=== PATIENT | male | born 1975 | race Caucasian/White ===

== ENCOUNTER 2023-12-21 16:21 | Inpatient (IN) | payer OTHER ==
[2023-12-21 16:55] VITALS: BMI 25.0
[2023-12-21] MEDS ORDERED: ONDANSETRON 4 MG/2 ML VIAL ONE (19:24)
[2023-12-21] MEDS ORDERED: ACETAMINOPHEN INJECTION 100 ML IVPB ONE (19:24)
[2023-12-21] MEDS: ACETAMINOPHEN 1000 MG/100 ML BAG IVPB ONE (19:29)
[2023-12-21] MEDS: ONDANSETRON 4 MG/2 ML VIAL IVPB ONE (19:29)
[2023-12-21 19:37] LABS: BASO % 0.7 % (0-2.0); EOS % 2.1 % (0-4.5); HEMATOCRIT 32.8 % (35.4-49); HEMOGLOBIN 11.3 GM/dL (11.7-16.9); LYMPH % 9.8 % (8-40); MCH 33.4 pg (25.7-33.7); MCHC 34.6 g/dl (32.0-35.9); MEAN CELL VOLUME 96.5 fl (80-96); MONO % 7.3 % (3.8-10.2); NEUT % 80.1 % (42.8-82.8); PLATELET COUNT 644 10^3/uL (134-434); RBC 3.39 M/mm3 (4.00-5.60); WHITE BLOOD COUNT 12.1 K/mm3 (4.0-10.0)
[2023-12-21 19:38] LABS: INR 1.21 (0.83-1.09); PROTHROMBIN TIME (PATIENT) 13.6 SEC (9.7-13.0)
[2023-12-21 19:40] LABS: ACTIVATED PTT 32.5 SECONDS (25.2-36.5)
[2023-12-21 19:41] LABS: CHLORIDE 93 mmol/L (98-107); POTASSIUM 4.9 mmol/L (3.5-5.1); SODIUM 131 mmol/L (136-145)
[2023-12-21 19:43] LABS: ALBUMIN 2.2 g/dl (3.4-5.0); ANION GAP 10 mmol/L (4-13); BLOOD UREA NITROGEN 20.3 mg/dL (7-18); CALCIUM 9.3 mg/dL (8.5-10.1); CO2 27 mmol/L (21-32)
[2023-12-21 19:46] LABS: SGOT/AST 33 U/L (15-37); SGPT/ALT 45 U/L (13-61)
[2023-12-21 19:47] LABS: CREATININE 0.9 mg/dL (0.55-1.3)
[2023-12-21 19:48] LABS: BILIRUBIN,TOTAL 0.3 mg/dL (0.2-1); TOT PROT 7.8 g/dl (6.4-8.2)
[2023-12-21 19:49] LABS: ALK PHOS 435 U/L (45-117)
[2023-12-21 19:58] LABS: GLUCOSE,RANDOM 430 mg/dL (74-106)
[2023-12-21] MEDS ORDERED: PIPERACILLIN/TAZOB 3.375 GM 3.375 GM/50 ML BAG IVPB ONE (20:02)
[2023-12-21] MEDS: PIPERACILLIN/TAZOB 3.375 GM 3.375 GM in DEXTROSE 5%-WATER - 50 ML IVPB ONE (20:08)
[2023-12-21] MEDS: morphine SULFATE 4 MG/ML VIAL IVPUSH ONE (20:09)
[2023-12-21 20:20] LABS: VENOUS BASE EXCESS 1.7 mmol/L (-2-2); VENOUS O2 SATURATION 92.2 % (70-80); VENOUS PCO2 37.6 mmHg (38-52); VENOUS PH 7.451 (7.310-7.410)
[2023-12-21] MEDS ORDERED: VANCOMYCIN 1 GRAM (PRE-DOCKED) 1,000 MG/250 ML BAG IVPB ONE (20:48)
[2023-12-21] MEDS: VANCOMYCIN 1 GM PREMIX - 1 GM/200 ML BAG IVPB ONE (21:15)
[2023-12-21] MEDS: LACTATED RINGERS SOLUTION 1000 ML INFUS.BAG IV ONE (21:34)
[2023-12-21 21:38] LABS: ERYTHROCYTE SEDIMENTATION RATE 103 mm/hr (0-10)
[2023-12-22] MEDS ORDERED: ONDANSETRON 4 MG/2 ML VIAL IVPUSH PRN (01:25)
[2023-12-22] MEDS ORDERED: VANCOMYCIN/WATER 1250 MG 1,250 MG/250 ML BAG IVPB SCH (01:30)
[2023-12-22] MEDS: INSULIN (LEVEMIR) 100 UNITS/ML UNITS SQ SCH ×2 (01:33→13:59)
[2023-12-22] MEDS: SODIUM CHLORIDE 1,000 ML IV SCH (01:33)
[2023-12-22] MEDS: INSULIN (NOVOLOG) ASPART 100 UNITS/ML 10ML VIAL SQ ONE ×3 (01:51→03:06)
[2023-12-22] MEDS: PIPERACILLIN/TAZOB 3.375 GM 3.375 GM in DEXTROSE 5%-WATER - 50 ML IVPB SCH ×2 (02:39→15:02)
[2023-12-22] MEDS: INSULIN ASPART SLIDING SCALE (NOVOLOG) 1 VIAL SQ SCH (06:03)
[2023-12-22 06:18] LABS: PH,URINE 5.5 (5.0-8.0); URINE APPEARANCE CLEAR; URINE BILIRUBIN NEGATIVE (NEGATIVE); URINE COLOR YELLOW; URINE GLUCOSE (UA) 3+ (NEGATIVE); URINE KETONE NEGATIVE (NEGATIVE); URINE LEUK ESTERASE NEGATIVE (NEGATIVE); URINE NITRITE NEGATIVE (NEGATIVE); URINE PROTEIN NEGATIVE (NEGATIVE)
[2023-12-22 09:19] LABS: HEMATOCRIT 31.4 % (35.4-49); HEMOGLOBIN 10.6 GM/dL (11.7-16.9); MCHC 33.9 g/dl (32.0-35.9); MEAN CELL VOLUME 97.5 fl (80-96); MEAN PLT VOLUME 6.7 fl (7.5-11.1); PLATELET COUNT 637 10^3/uL (134-434); RBC 3.22 M/mm3 (4.00-5.60); RDW 13.5 % (11.9-15.9); WHITE BLOOD COUNT 10.4 K/mm3 (4.0-10.0)
[2023-12-22 09:29] LABS: POTASSIUM 4.2 mmol/L (3.5-5.1)
[2023-12-22] MEDS: VANCOMYCIN/WATER 1250 MG 1,250 MG/250 ML BAG IVPB SCH ×2 (09:40→21:15)
[2023-12-22 09:46] LABS: BLOOD UREA NITROGEN 13.6 mg/dL (7-18); MAGNESIUM 2.2 mg/dL (1.8-2.4)
[2023-12-22 09:48] LABS: CREATININE 0.7 mg/dL (0.55-1.3); PHOSPHOROUS 3.3 mg/dL (2.5-4.9)
[2023-12-22 09:49] LABS: BILIRUBIN,TOTAL 0.3 mg/dL (0.2-1); TOT PROT 7.4 g/dl (6.4-8.2)
[2023-12-22 09:53] LABS: CALCIUM 8.7 mg/dL (8.5-10.1)
[2023-12-22] MEDS: ACETAMINOPHEN 325 MG TABLET (FP) PO PRN (16:53)
[2023-12-23] MEDS ORDERED: PROPOFOL 20 ML ONE (09:50)
[2023-12-23] MEDS ORDERED: FENTANYL CITRATE/PF 50 MCG/ML VIAL ONE ×7 (09:50→11:36)
[2023-12-23] MEDS ORDERED: SUCCINYLCHOLINE CHLORIDE 200 MG/10 ML SYRINGE ONE (09:50)
[2023-12-23] MEDS ORDERED: MIDAZOLAM HCL 2 MG/2 ML SINGLE DOSE VIAL ONE (09:50)
[2023-12-23] MEDS ORDERED: PROMETHAZINE HCL 25 MG/1 ML VIAL IVPB PRN ×2 (10:56→11:42)
[2023-12-23] MEDS ORDERED: ACETAMINOPHEN 325 MG TABLET (FP) PO PRN (11:42)
[2023-12-23] MEDS ORDERED: SODIUM CHLORIDE 1,000 ML IV SCH (11:42)
[2023-12-23] MEDS: PIPERACILLIN/TAZOBACTAM 3.375 GM VIAL IVPB ONE (11:55)
[2023-12-23] MEDS: LACTATED RINGERS SOLUTION 1,000 ML IV SCH ×2 (11:59→12:25)
[2023-12-23 12:56] LABS: HEMATOCRIT 31.7 % (35.4-49); HEMOGLOBIN 10.4 GM/dL (11.7-16.9); MCH 32.2 pg (25.7-33.7); MCHC 32.8 g/dl (32.0-35.9); MEAN CELL VOLUME 98.2 fl (80-96); MEAN PLT VOLUME 6.4 fl (7.5-11.1); PLATELET COUNT 662 10^3/uL (134-434); RBC 3.23 M/mm3 (4.00-5.60); RDW 13.9 % (11.9-15.9); WHITE BLOOD COUNT 13.9 K/mm3 (4.0-10.0)
[2023-12-23 13:20] LABS: POTASSIUM 4.4 mmol/L (3.5-5.1)
[2023-12-23 13:21] LABS: BLOOD UREA NITROGEN 11.5 mg/dL (7-18); CALCIUM 8.5 mg/dL (8.5-10.1)
[2023-12-23 13:25] LABS: CREATININE 0.7 mg/dL (0.55-1.3)
[2023-12-23 14:16] LABS: HIV INTERPRETATION NEGATIVE (NEGATIVE)
[2023-12-23] MEDS: PIPERACILLIN/TAZOB 3.375 GM 3.375 GM in DEXTROSE 5%-WATER - 50 ML IVPB SCH (14:33)
[2023-12-23] MEDS: INSULIN ASPART SLIDING SCALE (NOVOLOG) 1 VIAL SQ SCH (16:33)
[2023-12-23] MEDS: INSULIN (LEVEMIR) 100 UNITS/ML UNITS SQ SCH (22:42)
[2023-12-23] MEDS: VANCOMYCIN/WATER 1250 MG 1,250 MG/250 ML BAG IVPB SCH (22:43)
[2023-12-24] MEDS: INSULIN (LEVEMIR) 100 UNITS/ML UNITS SQ SCH (06:25)
[2023-12-24] MEDS: INSULIN ASPART SLIDING SCALE (NOVOLOG) 1 VIAL SQ SCH (06:25)
[2023-12-24] MEDS ORDERED: CEFAZOLIN SODIUM 2 GM VIAL IVPB SCH (15:15)
[2023-12-24] MEDS ORDERED: CEFTRIAXONE 1 GM in DEXTROSE 5%-WATER - 50 ML IVPB SCH (17:00)
[2023-12-24] MEDS: CEFAZOLIN SODIUM 2 GM in DEXTROSE 5%-WATER 100 ML IVPB SCH (17:03)
[2023-12-24] MEDS: INSULIN (NOVOLOG) ASPART 100 UNITS/ML 10ML VIAL SQ SCH (17:09)
[2023-12-24] MEDS: ACETAMINOPHEN 325 MG TABLET (FP) PO PRN (17:34)
[2023-12-25 09:32] VITALS: RESP 16
[2023-12-25 09:33] LABS: POTASSIUM 4.4 mmol/L (3.5-5.1)
[2023-12-25 09:34] LABS: BLOOD UREA NITROGEN 10.6 mg/dL (7-18)
[2023-12-25 09:35] LABS: BASO % 0.6 % (0-2.0); EOS % 3.2 % (0-4.5); HEMATOCRIT 31.5 % (35.4-49); HEMOGLOBIN 10.5 GM/dL (11.7-16.9); LYMPH % 16.1 % (8-40); MCH 32.6 pg (25.7-33.7); MCHC 33.5 g/dl (32.0-35.9); MEAN CELL VOLUME 97.2 fl (80-96); MEAN PLT VOLUME 6.4 fl (7.5-11.1); MONO % 8.4 % (3.8-10.2); NEUT % 71.7 % (42.8-82.8); PLATELET COUNT 718 10^3/uL (134-434); RBC 3.24 M/mm3 (4.00-5.60); WHITE BLOOD COUNT 11.9 K/mm3 (4.0-10.0)
[2023-12-25 09:37] LABS: CREATININE 0.7 mg/dL (0.55-1.3)
[2023-12-25 10:42] LABS: ERYTHROCYTE SEDIMENTATION RATE 108 mm/hr (0-10)
[2023-12-25 14:36] VITALS: BP 119/79; PULSE 93; TEMP 99.1
== END 2023-12-25 16:00 | disposition home or self-care (01) | DRG 364 ==
LOC: JER 16:21 → JERBED 21:31 → J5S 12-22 00:33
PROVIDERS: ADMIT Student in an Organized Health Care Education/Training Program; ATTEND Internal Medicine
PROC: 0J9C0ZZ Drainage of Pelvic Region Subcutaneous Tissue and Fascia, Open Approach (ICD-10-PCS; principal; 2023-12-21)
DX: L02.214 Cutaneous abscess of groin (principal); A49.01 Methicillin susceptible Staphylococcus aureus infection, unspecified site; D75.839 Thrombocytosis, unspecified; E11.65 Type 2 diabetes mellitus with hyperglycemia; D72.829 Elevated white blood cell count, unspecified; R33.9 Retention of urine, unspecified; E87.6 Hypokalemia
CPT/HCPCS: 0241U-QW; 36415; 72193-TC; 80048; 80053; 80061; 81003; 82010; 82803; 82962; 83036; 83605; 83735; 84100; 84484; 85025; 85027; 85610; 85651; 85730; 86140; 86850; 86900; 86901; 87040; 87070; 87077; 87086; 87186; 87205; 87389; 93005; 93010; 94760; 99285-25; G0480; J0131; Q9967